=== PATIENT | female | born 1945 | race Caucasian/White ===

== ENCOUNTER 2018-10-14 09:55 | Outpatient (CLI) | payer MEDICARE, BC ==
--- NOTE | 2018-10-14 11:04 | RAD ---
RIGHT KNEE FOUR VIEWS: History: Chronic knee pain. FINDINGS: There is no significant arthritic change to the knee appreciated. No joint effusion or fracture. IMPRESSION: Essentially unremarkable right knee. POS: [facility]
== END 2018-10-14 09:56 | disposition home or self-care (01) ==
LOC: MADRAD 09:55
PROVIDERS: ATTEND Family Medicine
DX: M25.561 Pain in right knee (principal)

== ENCOUNTER 2019-10-03 09:32 | Outpatient (CLI) | payer MEDICARE, BC ==
--- NOTE | 2019-10-03 09:53 | RAD ---
Exam:3 views left shoulder HISTORY: Pain. COMPARISON: None FINDINGS: Minimal joint spaces preserved. No fracture or dislocation. Unremarkable digital left ribs. IMPRESSION: Unremarkable 3 views left shoulder.
--- NOTE | 2019-10-03 10:05 | RAD ---
Exam: Single view of the pelvis HISTORY: Pelvic and hip pain COMPARISON: None FINDINGS: A single view the pelvis shows no evidence of acute fracture or dislocation. No degenerativ e changes seen in either hip. IMPRESSION: No evidence of acute osseous abnormality.
--- NOTE | 2019-10-03 10:15 | RAD ---
THREE VIEWS OF THE LUMBAR SPINE: HISTORY: Pain. COMPARISON: None. FINDINGS: Five lumbar-type vertebrae. Lumbar spine vertebral body heights are maintained. No fracture. Vacuum d isc phenomenon at the L1-L2 level. No significant spondylolisthesis. No spondylolysis. Mild hypertrophic changes of the posterior elements at L4-L5 and L5-S1 are noted. Visualized sacrum and karrie ny pelvis are intact. IMPRESSION: No fracture. Degenerative changes of lumbar spine as described above. Transcribed Date/Time: 10/03/2019 10:19 AM
== END 2019-10-03 09:33 | disposition home or self-care (01) ==
LOC: MADRAD 09:32
DX: M54.5 Low back pain (principal); M25.512 Pain in left shoulder; M47.816 Spondylosis without myelopathy or radiculopathy, lumbar region
CPT/HCPCS: 72100; 72170

== ENCOUNTER 2020-06-15 15:46 | Outpatient (CLI) | payer MEDICARE, BC ==
--- NOTE | 2020-06-15 15:59 | CT ---
CT BRAIN WITHOUT CONTRAST: HISTORY: Headache COMPARISON: None FINDINGS: There is artifact from metallic density in the right posterior auricular region, reducing the sensiti vity of the exam. 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 There are changes of chronic small vessel ischemic disease in the periventricular white matte r. No evidence of acute infarct, hemorrhage, midline shift or abnormal extra-axial fluid collections is seen. The ventricular size is appropriate and the basilar cisterns are patent. The bony calvarium is intact. The visualized paranasal sinuses and mastoid air cells are well aerated. IMPRESSION: No CT evidence of acute intracranial process.
== END 2020-06-15 15:47 | disposition home or self-care (01) ==
LOC: MADCT 15:46
PROVIDERS: ATTEND Family Medicine
DX: R51.9 Headache, unspecified (principal)
CPT/HCPCS: 70450

== ENCOUNTER 2021-07-21 12:00 | Outpatient (CLI) | payer MEDICARE, BC | END 2021-07-21 12:01 | disposition home or self-care (01) | LOC: MADRAD 12:00 | PROVIDERS: ATTEND Family Medicine | DX: M25.511 Pain in right shoulder (principal); M25.711 Osteophyte, right shoulder ==

== ENCOUNTER 2022-10-07 08:16 | Outpatient (CLI) | payer MEDICARE, BC | END 2022-10-07 08:17 | disposition home or self-care (01) | LOC: MADER/OP 08:16 | PROVIDERS: ATTEND Family Medicine | DX: N39.0 Urinary tract infection, site not specified (principal) | CPT/HCPCS: 87086 ==

== ENCOUNTER 2023-04-07 17:31 | Emergency (ER) | payer MEDICARE, BC ==
[2023-04-07 19:55] LABS: #Basophils 0.1 thou/uL (0.0-0.2); #Lymphocytes 2.1 thou/uL (1.20-3.40); #Monocytes 0.4 thou/uL (0.11-0.59); #Neutrophils 4.3 thou/uL (1.40-6.50); %Basophils 0.8 % (0.0-1.0); %Eosinophils 0.6 % (0.0-10.0); %Monocytes 5.3 % (0.0-10.0); %Neutrophils 62.3 % (42.0-75.0); Hemoglobin 12.3 g/dL (12.0-16.0); Mean Corpuscular HGB CONC 33.9 g/dL (32.0-36.0); Mean Corpuscular Hemoglobin 33.6 pg (27.0-31.0); Mean Platelet Volume 7.9 fL (7.4-10.4); Platelet Count 256 10x3/uL (130-400); RBC Distribution Width 12.7 % (11.5-14.5); Red Blood Cell (RBC) Count 3.66 mill/uL (4.20-5.40); White Blood Cell (WBC) Count 6.9 10x3/uL (4.8-10.8)
[2023-04-07 20:11] LABS: ALT (SGPT) 14 U/L (8-55); AST (SGOT) 15 U/L (5-34); Albumin 4.1 g/dL (3.4-4.8); Alkaline Phosphatase 58 U/L (40-110); Anion Gap 15 mmol/L (10-20); BUN (Urea Nitrogen) 15 mg/dL (9.8-20.1); Bilirubin, Total 0.3 mg/dL (0.2-1.2); Calc. Creatinine Clearance 0 mL/min (70-130); Calcium 8.8 mg/dL (7.8-10.44); Carbon Dioxide 22 mmol/L (23-31); Chloride 103 mmol/L (98-107); Estimated GFR 77; Globulin 2.4 g/dL (2.4-3.5); Glucose 103 mg/dL (83-110); Lipase 26 U/L (8-78); Potassium 4.1 mmol/L (3.5-5.1); Protein, Total 6.5 g/dL (5.8-8.1); Sodium 136 mmol/L (136-145)
[2023-04-07] MEDS ORDERED: Hydrochlorothiazide 25 MG TAB ONE (20:57)
[2023-04-07 21:11] LABS: Bilirubin Negative (Negative); Blood, Urine Trace (Negative); Clarity Clear (Clear); Glucose, Urine (Dipstick) Negative (Negative); Ketone, Urine Negative (Negative); Leukocyte Negative (Negative); Nitrite Negative (Negative); Protein, Urine (Dipstick) Negative (Neg-Trace); Urobilinogen 0.2 mg/dL (Less than 2)
[2023-04-07 21:15] LABS: CAUTI Indications for Culture Dysuria,urgency,freq; RBC/HPF 0-3 HPF (0-3); Squamous Epithelial 0-3 HPF (0-3); WBC/HPF None Seen HPF (0-3)
[2023-04-07 21:16] LABS: Urine Culture Reflex No No
== END 2023-04-07 21:36 | disposition home or self-care (01) ==
LOC: MADERS 17:31
DX: I10 Essential (primary) hypertension (principal); R11.0 Nausea; Z79.899 Other long term (current) drug therapy
CPT/HCPCS: 80053; 81001; 83690; 83735; 84484; 85025; 93005

== ENCOUNTER 2023-04-16 12:21 | Outpatient (CLI) | payer MEDICARE, BC ==
[2023-04-16 12:57] LABS: ALT (SGPT) 12 U/L (8-55); AST (SGOT) 15 U/L (5-34); Albumin 4.2 g/dL (3.4-4.8); Alkaline Phosphatase 63 U/L (40-110); Anion Gap 17 mmol/L (10-20); BUN (Urea Nitrogen) 16 mg/dL (9.8-20.1); Bilirubin, Total 0.7 mg/dL (0.2-1.2); Calc. Creatinine Clearance 0 mL/min (70-130); Calcium 9.6 mg/dL (7.8-10.44); Carbon Dioxide 26 mmol/L (23-31); Chloride 93 mmol/L (98-107); Estimated GFR 67; Glucose 122 mg/dL (83-110); Magnesium 1.9 mg/dL (1.6-2.6); Phosphorus 3.2 mg/dL (2.3-4.7); Potassium 3.6 mmol/L (3.5-5.1); Protein, Total 7.2 g/dL (5.8-8.1); Sodium 132 mmol/L (136-145)
== END 2023-04-16 12:22 | disposition home or self-care (01) ==
LOC: MADRAD 12:21
PROVIDERS: ATTEND Internal Medicine
DX: R63.0 Anorexia (principal); R53.83 Other fatigue
CPT/HCPCS: 36415; 74018; 80053; 83735; 84100

== ENCOUNTER 2023-04-17 08:47 | Outpatient (CLI) | payer MEDICARE, BC | END 2023-04-17 08:48 | disposition home or self-care (01) | LOC: MADCT 08:47 | PROVIDERS: ATTEND Internal Medicine | DX: R63.0 Anorexia (principal) | CPT/HCPCS: 71250 ==

== ENCOUNTER 2024-01-08 13:06 | Emergency (ER) | payer MEDICARE, BC ==
[~2024-01-08 13:06] MED LIST: Iopamidol 370 76% 100 ML VIAL ONE
[2024-01-08] MEDS ORDERED: Dicyclomine 20 MG/2 ML VIAL ONE (13:57)
[2024-01-08] MEDS ORDERED: Morphine 4 MG/ML VIAL ONE (13:58)
[2024-01-08] MEDS ORDERED: Lactated Ringer's 1,000 ML ONE (13:58)
[2024-01-08] MEDS ORDERED: Ondansetron PF 4 MG/2 ML Vial ONE (13:58)
[2024-01-08 14:12] LABS: Hematocrit 40.4 % (36.0-47.0); Mean Corpuscular HGB CONC 29.6 g/dL (32.0-36.0); Mean Corpuscular Volume 97.8 fl (78.0-98.0); Mean Platelet Volume 5.7 fL (7.4-10.4); Platelet Count 269 10x3/uL (130-400); RBC Distribution Width 12.9 % (11.5-14.5); Red Blood Cell (RBC) Count 4.14 mill/uL (4.20-5.40); White Blood Cell (WBC) Count 5.5 10x3/uL (4.8-10.8)
[2024-01-08 14:26] LABS: Albumin 4.1 g/dL (3.4-4.8); Anion Gap 13 mmol/L (10-20); BUN (Urea Nitrogen) 11 mg/dL (9.8-20.1); Bilirubin, Total 0.6 mg/dL (0.2-1.2); Calc. Creatinine Clearance 0 mL/min (70-130); Calcium 9.2 mg/dL (7.8-10.44); Carbon Dioxide 27 mmol/L (23-31); Chloride 104 mmol/L (98-107); Estimated GFR 68; Globulin 2.8 g/dL (2.4-3.5); Glucose 114 mg/dL (83-110); Potassium 4.2 mmol/L (3.5-5.1); Protein, Total 6.9 g/dL (5.8-8.1); Sodium 140 mmol/L (136-145)
[2024-01-08 14:27] LABS: ALT (SGPT) 15 U/L (8-55); AST (SGOT) 19 U/L (5-34); Alkaline Phosphatase 78 U/L (40-110); Lipase 16 U/L (8-78)
[2024-01-08 14:28] LABS: Manual Diff?? YES
[2024-01-08 14:29] LABS: Lymphocytes 17 % (21-51); MDiff Complete? YES; Monocytes 7 % (0-10); Neutrophil 70 % (42-75); Reactive Lymphocytes 6 % (0-10)
[2024-01-08 14:30] LABS: Anisocytosis SLIGHT = 6-15 cells (100X) (0-5/hpf); Hypochromia SLIGHT = 6-15 cells (100X) (0-5/hpf); Platelet Adequacy Comment Appears Adequate
[2024-01-08 15:42] LABS: Bilirubin Negative (Negative); Blood, Urine Negative (Negative); Clarity Clear (Clear); Glucose, Urine (Dipstick) Negative (Negative); Ketone, Urine Negative (Negative); Leukocyte Negative (Negative); Nitrite Negative (Negative); Protein, Urine (Dipstick) Negative (Neg-Trace); Urobilinogen 0.2 mg/dL (Less than 2)
[2024-01-08 15:44] LABS: Bacteria/HPF Rare-Few HPF (None Seen); CAUTI Indications for Culture Pelvic or flank pain; RBC/HPF 0-3 HPF (0-3); Squamous Epithelial 0-3 HPF (0-3); WBC/HPF None Seen HPF (0-3)
[2024-01-08 15:45] LABS: Urine Culture Reflex No No
== END 2024-01-08 16:00 | disposition home or self-care (01) ==
LOC: MADERS 13:06
DX: R10.31 Right lower quadrant pain (principal); R19.7 Diarrhea, unspecified; I10 Essential (primary) hypertension
CPT/HCPCS: 74177; 80053; 81001; 83605; 83690; 85025; 87086; 94760; 96361; 96372; 96374; 96375; J2270; J2405; J7120; Q9967